=== PATIENT | male | born 1960 | race Caucasian/White ===

== ENCOUNTER 2017-09-07 06:28 | Emergency (ER) | payer OTHER ==
[2017-09-07] MEDS: KETOROLAC 30 MG INJ IM (06:55)
== END 2017-09-07 07:08 | disposition home or self-care (01) ==
LOC: FTE 06:28
DX: M94.261 Chondromalacia, right knee (principal)
CPT/HCPCS: 96372; 99284-25

== ENCOUNTER 2018-08-14 18:15 | Inpatient (IN) | payer OTHER ==
[2018-08-14] MEDS: SOD CHLORIDE 0.9% 500 ML IV (19:39)
[2018-08-14] MEDS: SOD CHLORIDE 0.9% 100 ML (19:49)
[2018-08-14] MEDS: IOHEXOL 100 ML (19:49)
[2018-08-14 19:54] LABS: ADD MAN DIFF? NO
[2018-08-14 19:58] LABS: WHITE BLOOD COUNT 8.9 10^3/ul (4.8-10.8)
[2018-08-14 19:58] LABS: ABNORMAL IP MESSAGE 1; BASOPHILS % 0.2 % (0.0-2.0); EOSINOPHILS % 0.2 % (0.0-7.0); HEMATOCRIT 34.9 % (42.0-52.0); LYMPHOCYTES # 0.6 10^3/ul (0.8-2.9); LYMPHOCYTES % 6.3 % (15.0-51.0); MEAN CORPUSCULAR HEMOGLOBIN 27.3 pg (29.0-33.0); MEAN CORPUSCULAR HGB CONC 31.5 g/dl (32.0-37.0); MEAN CORPUSCULAR VOLUME 86.6 fl (82.0-101.0); MEAN PLATELET VOLUME 8.9 fl (7.4-10.4); MONOCYTE # 0.7 10^3/ul (0.3-0.9); MONOCYTES % 8.4 % (0.0-11.0); NEUTROPHIL # 7.5 10^3/ul (1.6-7.5); NEUTROPHILS % 84.1 % (39.0-77.0); PLATELET COUNT 314 10^3/UL (140-415); POSITIVE DIFF @See below; RED BLOOD COUNT 4.03 10^6/ul (4.70-6.10); RED CELL DISTRIBUTION WIDTH 15.9 % (11.5-14.5)
[2018-08-14 20:02] LABS: ANION GAP 11 (5-13); BLOOD UREA NITROGEN 18 mg/dl (7-20); CALCIUM 8.8 mg/dl (8.4-10.2); CARBON DIOXIDE 25 mmol/L (21-31); CHLORIDE 99 mmol/L (97-110); CREATININE 0.66 mg/dl (0.61-1.24); Estimated GFR > 60 mL/min (>60); GLUCOSE 394 mg/dl (70-220); POTASSIUM 4.6 mmol/L (3.5-5.1); SODIUM 135 mmol/L (135-144)
[2018-08-14 20:04] LABS: INR 1.04; PARTIAL THROMBOPLASTIN TIME 29.5 Sec (23.0-35.0); PROTIME 13.7 Sec (11.9-14.9); PT RATIO 1.1
[2018-08-14 20:15] LABS: B-TYPE NATRIURETIC PEPTIDE 354 PG/ML (0-125); TROPONIN-I < 0.012 ng/ml (0.000-0.120)
[2018-08-14] MEDS: CEFTRIAXONE 1 GM/50 ML (PMX) 50 ML IVPB (22:11)
[2018-08-14] MEDS: PROPOFOL 200 MG INJ IV (22:33)
[2018-08-14] MEDS: ONDANSETRON 4 MG INJ IV (23:03)
[2018-08-14] MEDS: HYDROmorphONE 0.5 MG/0.5 ML SYG IV (23:04)
[2018-08-14] MEDS ORDERED: ONDANSETRON 4 MG INJ IV (23:30)
[2018-08-14] MEDS ORDERED: ZOLPIDEM 5 MG TAB PO (23:30)
[2018-08-15] MEDS ORDERED: ONDANSETRON 4 MG INJ IV
[2018-08-15] MEDS ORDERED: ACETAMINOPHEN 325 MG TAB PO
[2018-08-15] MEDS: morphine 4 MG/ML VIAL IV ×2 (03:55→18:53)
[2018-08-15] MEDS ORDERED: CLARITHROMYCIN 500 MG TAB PO ×2 (09:00→10:30)
[2018-08-15] MEDS ORDERED: RIFABUTIN 150 MG CAP PO (09:00)
[2018-08-15] MEDS ORDERED: GLUCAGON 1 MG INJ IM (09:00)
[2018-08-15] MEDS ORDERED: GLUCOSE GEL 15 GRAM TUBE PO ×2 (09:00)
[2018-08-15] MEDS ORDERED: DEXTROSE 50% 50 ML SYRINGE IV ×2 (09:00)
[2018-08-15] MEDS ORDERED: ETHAMBUTOL 400 MG TAB PO ×2 (09:00→10:30)
[2018-08-15] MEDS ORDERED: GLUCOSE GEL 15 GRAM TUBE BUCCAL (09:00)
[2018-08-15] MEDS: FOLIC ACID 1 MG TAB PO (09:56)
[2018-08-15] MEDS: predniSONE 2.5 MG TAB PO (09:57)
[2018-08-15] MEDS: INSULIN ASPART [NOVOLOG] 3 ML PEN SC ×3 (12:23→21:48)
[2018-08-16] MEDS: ACETAMINOPHEN 325 MG TAB PO (04:44)
[2018-08-16] MEDS: INSULIN ASPART [NOVOLOG] 3 ML PEN SC ×4 (07:41→22:11)
[2018-08-16] MEDS: predniSONE 2.5 MG TAB PO (08:04)
[2018-08-16] MEDS: FOLIC ACID 1 MG TAB PO (08:04)
[2018-08-16] MEDS: morphine 4 MG/ML VIAL IV (11:02)
[2018-08-16] MEDS ORDERED: VANCOMYCIN IV PER PHARMACY XX (12:00)
[2018-08-16 12:05] LABS: LACTIC ACID 1.8 mmol/L (0.5-2.0)
[2018-08-16 12:46] LABS: PROCALCITONIN 0.45 ng/mL (0.00-0.10)
[2018-08-16 13:02] LABS: ADD UMIC YES; UR ASCORBIC ACID NEGATIVE (NEGATIVE); UR BACTERIA FEW /HPF (NONE SEEN); UR BILIRUBIN (Dip) NEGATIVE (NEGATIVE); UR BLOOD (Dip) 1+ mg/dL (NEGATIVE); UR CLARITY CLEAR (CLEAR); UR COLOR AMBER (YELLOW); UR GLUCOSE (Dip) 3+ mg/dL (NEGATIVE); UR KETONES (Dip) 1+ mg/dL (NEGATIVE); UR LEUKOCYTE ESTERASE (Dip) NEGATIVE Leu/ul (NEGATIVE); UR MUCUS MODERATE /HPF (NONE SEEN); UR NITRITE (Dip) NEGATIVE (NEGATIVE); UR RBC 72 /HPF (0-5); UR SPECIFIC GRAVITY (Dip) 1.027 (1.003-1.030); UR SQUAMOUS EPITHELIAL CELL FEW /HPF (FEW); UR TOTAL PROTEIN (Dip) 1+ mg/dl (NEGATIVE); UR UROBILINOGEN (Dip) 2+ mg/dL (NEGATIVE); UR WBC 5 /HPF (0-5)
[2018-08-16] MEDS: VANCOMYCIN HCL 1.5 GM in SOD CHLORIDE 0.9% 250 ML IVPB (13:11)
[2018-08-16] MEDS: PIPER-TAZO 3.375 GM IV (PMX) 100 ML IVPB (17:30)
[2018-08-16 19:53] LABS: HIV 1&2 ANTIBODY NEGATIVE (NEGATIVE)
[2018-08-17] MEDS: PIPER-TAZO 3.375 GM IV (PMX) 100 ML IVPB ×3 (01:53→18:58)
[2018-08-17] MEDS: VANCOMYCIN 1 GM 250 ML IVPB ×2 (01:56→14:08)
[2018-08-17] MEDS: morphine 4 MG/ML VIAL IV ×2 (02:36→20:16)
[2018-08-17] MEDS: ACETAMINOPHEN 325 MG TAB PO (04:48)
[2018-08-17 07:48] LABS: ADD MAN DIFF? NO
[2018-08-17 07:55] LABS: BASOPHILS % 0.2 % (0.0-2.0); EOSINOPHILS % 0.3 % (0.0-7.0); HEMATOCRIT 37.2 % (42.0-52.0); HEMOGLOBIN 11.4 g/dl (14.0-18.0); LYMPHOCYTES % 6.7 % (15.0-51.0); MEAN CORPUSCULAR HEMOGLOBIN 26.6 pg (29.0-33.0); MEAN CORPUSCULAR HGB CONC 30.6 g/dl (32.0-37.0); MEAN CORPUSCULAR VOLUME 86.9 fl (82.0-101.0); MEAN PLATELET VOLUME 8.4 fl (7.4-10.4); MONOCYTE # 1.3 10^3/ul (0.3-0.9); MONOCYTES % 8.4 % (0.0-11.0); NEUTROPHILS % 83.1 % (39.0-77.0); PLATELET COUNT 262 10^3/UL (140-415); RED BLOOD COUNT 4.28 10^6/ul (4.70-6.10); RED CELL DISTRIBUTION WIDTH 16.5 % (11.5-14.5)
[2018-08-17 07:55] LABS: WHITE BLOOD COUNT 15.6 10^3/ul (4.8-10.8)
[2018-08-17] MEDS: ETHAMBUTOL 400 MG TAB PO ×2 (09:11→20:15)
[2018-08-17] MEDS: CLARITHROMYCIN 500 MG TAB PO ×2 (09:11→20:15)
[2018-08-17] MEDS: FOLIC ACID 1 MG TAB PO (09:11)
[2018-08-17] MEDS: predniSONE 2.5 MG TAB PO (09:11)
[2018-08-17] MEDS: RIFABUTIN 150 MG CAP PO ×2 (09:15→20:15)
[2018-08-17] MEDS: INSULIN ASPART [NOVOLOG] 3 ML PEN SC ×4 (09:31→20:15)
[2018-08-17] MEDS: PANTOPRAZOLE (EC) 40 MG TAB PO (14:08)
[2018-08-18 01:32] LABS: VANCOMYCIN,TROUGH 7.7 ug/ml (10.0-20.0)
[2018-08-18] MEDS: VANCOMYCIN 1 GM 250 ML IVPB (01:42)
[2018-08-18] MEDS: PIPER-TAZO 3.375 GM IV (PMX) 100 ML IVPB ×2 (01:43→09:55)
[2018-08-18] MEDS: ACETAMINOPHEN 325 MG TAB PO ×2 (02:00→08:06)
[2018-08-18] MEDS: PANTOPRAZOLE (EC) 40 MG TAB PO (05:42)
[2018-08-18] MEDS ORDERED: PANTOPRAZOLE (EC) 40 MG TAB PO (06:00)
[2018-08-18 07:16] LABS: CREATININE 0.94 mg/dl (0.61-1.24)
[2018-08-18 07:16] LABS: BLOOD UREA NITROGEN 13 mg/dl (7-20)
[2018-08-18] MEDS: INSULIN ASPART [NOVOLOG] 3 ML PEN SC ×4 (07:55→20:38)
[2018-08-18] MEDS: FOLIC ACID 1 MG TAB PO (08:06)
[2018-08-18] MEDS: predniSONE 2.5 MG TAB PO (08:06)
[2018-08-18 08:35] LABS: ADD MAN DIFF? NO
[2018-08-18 08:44] LABS: WHITE BLOOD COUNT 13.1 10^3/ul (4.8-10.8)
[2018-08-18 08:44] LABS: BASOPHILS % 0.2 % (0.0-2.0); EOSINOPHILS # 0.1 10^3/ul (0.0-0.5); EOSINOPHILS % 0.4 % (0.0-7.0); HEMATOCRIT 36.3 % (42.0-52.0); HEMOGLOBIN 11.3 g/dl (14.0-18.0); LYMPHOCYTES # 0.8 10^3/ul (0.8-2.9); LYMPHOCYTES % 5.9 % (15.0-51.0); MEAN CORPUSCULAR HEMOGLOBIN 26.8 pg (29.0-33.0); MEAN CORPUSCULAR HGB CONC 31.1 g/dl (32.0-37.0); MEAN PLATELET VOLUME 8.4 fl (7.4-10.4); MONOCYTE # 1.1 10^3/ul (0.3-0.9); MONOCYTES % 8.7 % (0.0-11.0); NEUTROPHIL # 10.9 10^3/ul (1.6-7.5); NEUTROPHILS % 83.4 % (39.0-77.0); PLATELET COUNT 278 10^3/UL (140-415); RED BLOOD COUNT 4.22 10^6/ul (4.70-6.10); RED CELL DISTRIBUTION WIDTH 16.5 % (11.5-14.5)
[2018-08-18] MEDS: morphine 2 MG INJ IV (08:54)
[2018-08-18] MEDS ORDERED: SOD CHLORIDE 0.9% 250 ML IV (09:00)
[2018-08-18 09:02] LABS: LACTIC ACID 1.2 mmol/L (0.5-2.0)
[2018-08-18 09:05] LABS: ALANINE AMINOTRANSFERASE 40 IU/L (13-69); ALBUMIN 2.6 g/dl (3.3-4.9); ALBUMIN/GLOBULIN RATIO 0.86; ALKALINE PHOSPHATASE 166 IU/L (42-121); ANION GAP 10 (5-13); ASPARTATE AMINO TRANSFERASE 25 IU/L (15-46); BILIRUBIN,INDIRECT 0.4 mg/dl (0-1.1); BILIRUBIN,TOTAL 0.4 mg/dl (0.2-1.3); BLOOD UREA NITROGEN 14 mg/dl (7-20); CALCIUM 8.7 mg/dl (8.4-10.2); CARBON DIOXIDE 24 mmol/L (21-31); CHLORIDE 100 mmol/L (97-110); CREATININE 0.98 mg/dl (0.61-1.24); Estimated GFR > 60 mL/min (>60); GLUCOSE 112 mg/dl (70-220); POTASSIUM 4.4 mmol/L (3.5-5.1); SODIUM 134 mmol/L (135-144); TOTAL PROTEIN 5.6 g/dl (6.1-8.1)
[2018-08-18] MEDS: SOD CHLORIDE 0.9% 500 ML IV (09:55)
[2018-08-18] MEDS: VANCOMYCIN HCL 1.5 GM in SOD CHLORIDE 0.9% 250 ML IVPB (12:07)
[2018-08-18] MEDS: MEROPENEM 1 GM/50ML(PMX) 50 ML IVPB ×2 (13:23→21:33)
[2018-08-18 13:50] LABS: ADD UMIC YES; UR ASCORBIC ACID NEGATIVE (NEGATIVE); UR BILIRUBIN (Dip) NEGATIVE (NEGATIVE); UR BLOOD (Dip) NEGATIVE (NEGATIVE); UR CLARITY CLEAR (CLEAR); UR COLOR YELLOW (YELLOW); UR GLUCOSE (Dip) NEGATIVE (NEGATIVE); UR KETONES (Dip) 1+ mg/dL (NEGATIVE); UR LEUKOCYTE ESTERASE (Dip) NEGATIVE Leu/ul (NEGATIVE); UR NITRITE (Dip) NEGATIVE (NEGATIVE); UR RBC 2 /HPF (0-5); UR SPECIFIC GRAVITY (Dip) 1.011 (1.003-1.030); UR TOTAL PROTEIN (Dip) 1+ mg/dl (NEGATIVE); UR UROBILINOGEN (Dip) NEGATIVE (NEGATIVE); UR WBC 2 /HPF (0-5)
[2018-08-18] MEDS: ASPIRIN 81 MG TAB PO (17:07)
[2018-08-19] MEDS: VANCOMYCIN HCL 1.5 GM in SOD CHLORIDE 0.9% 250 ML IVPB ×2 (00:29→11:35)
[2018-08-19] MEDS: MEROPENEM 1 GM/50ML(PMX) 50 ML IVPB ×3 (05:28→22:31)
[2018-08-19] MEDS: PANTOPRAZOLE (EC) 40 MG TAB PO (05:28)
[2018-08-19] MEDS: INSULIN ASPART [NOVOLOG] 3 ML PEN SC ×4 (07:55→20:25)
[2018-08-19] MEDS: FOLIC ACID 1 MG TAB PO (08:16)
[2018-08-19] MEDS: ASPIRIN 81 MG TAB PO (08:16)
[2018-08-19] MEDS: predniSONE 2.5 MG TAB PO (08:16)
[2018-08-19] MEDS: ACETAMINOPHEN 325 MG TAB PO (08:16)
[2018-08-19] MEDS: ETHAMBUTOL 400 MG TAB PO ×2 (08:20→20:25)
[2018-08-19] MEDS: RIFABUTIN 150 MG CAP PO ×2 (08:20→20:25)
[2018-08-19] MEDS: CLARITHROMYCIN 500 MG TAB PO ×2 (08:20→20:25)
[2018-08-19 10:08] LABS: ADD MAN DIFF? NO
[2018-08-19 10:10] LABS: BASOPHILS % 0.3 % (0.0-2.0); EOSINOPHILS # 0.1 10^3/ul (0.0-0.5); EOSINOPHILS % 0.8 % (0.0-7.0); HEMATOCRIT 34.5 % (42.0-52.0); HEMOGLOBIN 10.9 g/dl (14.0-18.0); LYMPHOCYTES # 0.7 10^3/ul (0.8-2.9); LYMPHOCYTES % 5.5 % (15.0-51.0); MEAN CORPUSCULAR HEMOGLOBIN 27.7 pg (29.0-33.0); MEAN CORPUSCULAR HGB CONC 31.6 g/dl (32.0-37.0); MEAN CORPUSCULAR VOLUME 87.6 fl (82.0-101.0); MEAN PLATELET VOLUME 8.5 fl (7.4-10.4); MONOCYTE # 1.2 10^3/ul (0.3-0.9); MONOCYTES % 9.3 % (0.0-11.0); NEUTROPHIL # 10.8 10^3/ul (1.6-7.5); PLATELET COUNT 326 10^3/UL (140-415); RED BLOOD COUNT 3.94 10^6/ul (4.70-6.10); RED CELL DISTRIBUTION WIDTH 16.5 % (11.5-14.5)
[2018-08-19 10:10] LABS: WHITE BLOOD COUNT 13.1 10^3/ul (4.8-10.8)
[2018-08-19 10:29] LABS: ALANINE AMINOTRANSFERASE 24 IU/L (13-69); ALBUMIN 3.2 g/dl (3.3-4.9); ALBUMIN/GLOBULIN RATIO 0.82; ALKALINE PHOSPHATASE 169 IU/L (42-121); ANION GAP 15 (5-13); ASPARTATE AMINO TRANSFERASE 21 IU/L (15-46); BILIRUBIN,INDIRECT 0.3 mg/dl (0-1.1); BILIRUBIN,TOTAL 0.3 mg/dl (0.2-1.3); BLOOD UREA NITROGEN 20 mg/dl (7-20); CALCIUM 9.1 mg/dl (8.4-10.2); CARBON DIOXIDE 22 mmol/L (21-31); CHLORIDE 103 mmol/L (97-110); CREATININE 1.34 mg/dl (0.61-1.24); Estimated GFR 55 mL/min (>60); GLUCOSE 144 mg/dl (70-220); MAGNESIUM 2.2 mg/dl (1.7-2.5); PHOSPHORUS 2.8 mg/dl (2.5-4.9); POTASSIUM 4.1 mmol/L (3.5-5.1); SODIUM 140 mmol/L (135-144); TOTAL PROTEIN 7.1 g/dl (6.1-8.1)
[2018-08-19 10:31] LABS: INR 1.18; PROTIME 15.1 Sec (11.9-14.9); PT RATIO 1.2
[2018-08-19 10:32] LABS: PARTIAL THROMBOPLASTIN TIME 39.3 Sec (23.0-35.0)
[2018-08-19 11:57] LABS: LACTIC ACID 1.3 mmol/L (0.5-2.0)
[2018-08-19] MEDS ORDERED: DIPHENHYDRAMINE 50 MG INJ IM (12:00)
[2018-08-19] MEDS: FENTAnyl 50 MCG/ML VIAL (13:48)
[2018-08-19] MEDS: LIDOCAINE 1% (MDV) 20 ML INJ (13:48)
[2018-08-19] MEDS: BENZONATATE 100 MG CAP PO (15:00)
[2018-08-19] MEDS: FLUCONAZOLE 400 MG/NS (PMX) 200 ML IVPB (15:02)
[2018-08-19] MEDS: DIPHENHYDRAMINE 50 MG INJ IV (16:14)
[2018-08-19] MEDS: morphine 2 MG INJ IV (16:40)
[2018-08-19] MEDS: SOD CHLORIDE 0.9% 1,000 ML IV (22:31)
[2018-08-19 23:59] LABS: VANCOMYCIN,TROUGH 21.4 ug/ml (10.0-20.0)
[2018-08-20] MEDS: ACETAMINOPHEN 325 MG TAB PO ×2 (04:10→10:27)
[2018-08-20] MEDS: VANCOMYCIN 1 GM 250 ML IVPB ×2 (04:10→15:52)
[2018-08-20] MEDS: MEROPENEM 1 GM/50ML(PMX) 50 ML IVPB ×3 (05:41→21:01)
[2018-08-20] MEDS: PANTOPRAZOLE (EC) 40 MG TAB PO (05:41)
[2018-08-20 07:03] LABS: ADD MAN DIFF? NO
[2018-08-20 07:11] LABS: ABNORMAL IP MESSAGE 1; BASOPHILS % 0.3 % (0.0-2.0); EOSINOPHILS # 0.1 10^3/ul (0.0-0.5); EOSINOPHILS % 1.2 % (0.0-7.0); HEMATOCRIT 31.5 % (42.0-52.0); HEMOGLOBIN 9.8 g/dl (14.0-18.0); LYMPHOCYTES # 0.6 10^3/ul (0.8-2.9); LYMPHOCYTES % 6.4 % (15.0-51.0); MEAN CORPUSCULAR HEMOGLOBIN 26.8 pg (29.0-33.0); MEAN CORPUSCULAR HGB CONC 31.1 g/dl (32.0-37.0); MEAN CORPUSCULAR VOLUME 86.3 fl (82.0-101.0); MEAN PLATELET VOLUME 8.8 fl (7.4-10.4); MONOCYTE # 0.9 10^3/ul (0.3-0.9); MONOCYTES % 9.8 % (0.0-11.0); NEUTROPHIL # 7.3 10^3/ul (1.6-7.5); NEUTROPHILS % 81.4 % (39.0-77.0); PLATELET COUNT 304 10^3/UL (140-415); POSITIVE DIFF @See below; RED BLOOD COUNT 3.65 10^6/ul (4.70-6.10); RED CELL DISTRIBUTION WIDTH 16.7 % (11.5-14.5)
[2018-08-20 07:33] LABS: ALANINE AMINOTRANSFERASE 24 IU/L (13-69); ALBUMIN 2.7 g/dl (3.3-4.9); ALBUMIN/GLOBULIN RATIO 0.81; ALKALINE PHOSPHATASE 122 IU/L (42-121); ANION GAP 7 (5-13); ASPARTATE AMINO TRANSFERASE 19 IU/L (15-46); BILIRUBIN,INDIRECT 0.2 mg/dl (0-1.1); BILIRUBIN,TOTAL 0.2 mg/dl (0.2-1.3); BLOOD UREA NITROGEN 17 mg/dl (7-20); CALCIUM 8.7 mg/dl (8.4-10.2); CARBON DIOXIDE 25 mmol/L (21-31); CHLORIDE 105 mmol/L (97-110); CREATININE 1.18 mg/dl (0.61-1.24); Estimated GFR > 60 mL/min (>60); GLUCOSE 108 mg/dl (70-220); PHOSPHORUS 2.5 mg/dl (2.5-4.9); POTASSIUM 3.7 mmol/L (3.5-5.1); SODIUM 137 mmol/L (135-144)
[2018-08-20] MEDS: INSULIN ASPART [NOVOLOG] 3 ML PEN SC ×4 (07:55→20:56)
[2018-08-20] MEDS: FOLIC ACID 1 MG TAB PO (08:42)
[2018-08-20] MEDS: predniSONE 2.5 MG TAB PO (08:42)
[2018-08-20] MEDS: SOD CHLORIDE 0.9% 1,000 ML IV ×2 (08:42→13:29)
[2018-08-20] MEDS: ASPIRIN 81 MG TAB PO (08:42)
[2018-08-20 13:01] LABS: NIL 0.04 IU/mL; QUANTIFERON(R)-TB GOLD NEGATIVE (NEGATIVE); TB-NIL 0.01 IU/mL; TB2-NIL 0.02 IU/mL
[2018-08-20] MEDS: FLUCONAZOLE 400 MG/NS (PMX) 200 ML IVPB (13:23)
[2018-08-20 23:12] LABS: CRYPTOCOCCAL ANTIGEN - SOURCE SERUM
[2018-08-21] MEDS: SOD CHLORIDE 0.9% 1,000 ML IV ×4 (00:16→18:26)
[2018-08-21] MEDS: VANCOMYCIN 1 GM 250 ML IVPB ×2 (03:48→16:05)
[2018-08-21] MEDS: PANTOPRAZOLE (EC) 40 MG TAB PO (05:45)
[2018-08-21] MEDS: ACETAMINOPHEN 325 MG TAB PO ×2 (05:45→10:57)
[2018-08-21] MEDS: MEROPENEM 1 GM/50ML(PMX) 50 ML IVPB ×3 (05:46→21:14)
[2018-08-21 07:51] LABS: ADD MAN DIFF? NO
[2018-08-21] MEDS: INSULIN ASPART [NOVOLOG] 3 ML PEN SC ×4 (07:55→21:00)
[2018-08-21 07:58] LABS: WHITE BLOOD COUNT 10.2 10^3/ul (4.8-10.8)
[2018-08-21 07:58] LABS: BASOPHILS % 0.3 % (0.0-2.0); EOSINOPHILS # 0.2 10^3/ul (0.0-0.5); EOSINOPHILS % 1.9 % (0.0-7.0); HEMATOCRIT 31.4 % (42.0-52.0); HEMOGLOBIN 9.7 g/dl (14.0-18.0); LYMPHOCYTES # 0.7 10^3/ul (0.8-2.9); LYMPHOCYTES % 6.5 % (15.0-51.0); MEAN CORPUSCULAR HEMOGLOBIN 26.6 pg (29.0-33.0); MEAN CORPUSCULAR HGB CONC 30.9 g/dl (32.0-37.0); MEAN CORPUSCULAR VOLUME 86.3 fl (82.0-101.0); MEAN PLATELET VOLUME 8.9 fl (7.4-10.4); MONOCYTE # 0.9 10^3/ul (0.3-0.9); MONOCYTES % 8.3 % (0.0-11.0); NEUTROPHIL # 8.4 10^3/ul (1.6-7.5); NEUTROPHILS % 82.1 % (39.0-77.0); PLATELET COUNT 329 10^3/UL (140-415); RED BLOOD COUNT 3.64 10^6/ul (4.70-6.10); RED CELL DISTRIBUTION WIDTH 16.8 % (11.5-14.5)
[2018-08-21] MEDS: FOLIC ACID 1 MG TAB PO (08:17)
[2018-08-21] MEDS: ASPIRIN 81 MG TAB PO (08:18)
[2018-08-21] MEDS: predniSONE 2.5 MG TAB PO (08:18)
[2018-08-21] MEDS: RIFABUTIN 150 MG CAP PO ×2 (08:23→21:15)
[2018-08-21] MEDS: ETHAMBUTOL 400 MG TAB PO ×2 (08:23→21:15)
[2018-08-21] MEDS: CLARITHROMYCIN 500 MG TAB PO ×2 (08:28→21:15)
[2018-08-21 08:32] LABS: ALANINE AMINOTRANSFERASE 22 IU/L (13-69); ALBUMIN 2.8 g/dl (3.3-4.9); ALBUMIN/GLOBULIN RATIO 0.93; ALKALINE PHOSPHATASE 115 IU/L (42-121); ANION GAP 8 (5-13); ASPARTATE AMINO TRANSFERASE 22 IU/L (15-46); BILIRUBIN,INDIRECT 0.2 mg/dl (0-1.1); BILIRUBIN,TOTAL 0.2 mg/dl (0.2-1.3); BLOOD UREA NITROGEN 13 mg/dl (7-20); CALCIUM 8.7 mg/dl (8.4-10.2); CARBON DIOXIDE 25 mmol/L (21-31); CHLORIDE 103 mmol/L (97-110); CREATININE 1.11 mg/dl (0.61-1.24); Estimated GFR > 60 mL/min (>60); GLUCOSE 107 mg/dl (70-220); MAGNESIUM 1.9 mg/dl (1.7-2.5); PHOSPHORUS 2.5 mg/dl (2.5-4.9); POTASSIUM 3.7 mmol/L (3.5-5.1); SODIUM 136 mmol/L (135-144); TOTAL PROTEIN 5.8 g/dl (6.1-8.1)
[2018-08-21] MEDS: FLUCONAZOLE 400 MG/NS (PMX) 200 ML IVPB (12:32)
[2018-08-21 23:36] LABS: IMMEDIATE SPIN CROSSMATCH 1 1
[2018-08-22] MEDS: SOD CHLORIDE 0.9% 1,000 ML IV ×3 (00:40→15:41)
[2018-08-22] MEDS: ACETAMINOPHEN 325 MG TAB PO ×2 (03:06→08:29)
[2018-08-22 03:46] LABS: ADD MAN DIFF? NO
[2018-08-22 04:04] LABS: BASOPHILS % 0.4 % (0.0-2.0); EOSINOPHILS # 0.2 10^3/ul (0.0-0.5); HEMATOCRIT 33.9 % (42.0-52.0); HEMOGLOBIN 10.6 g/dl (14.0-18.0); LYMPHOCYTES # 1.5 10^3/ul (0.8-2.9); LYMPHOCYTES % 12.8 % (15.0-51.0); MEAN CORPUSCULAR HEMOGLOBIN 27.2 pg (29.0-33.0); MEAN CORPUSCULAR HGB CONC 31.3 g/dl (32.0-37.0); MEAN CORPUSCULAR VOLUME 87.1 fl (82.0-101.0); MEAN PLATELET VOLUME 8.7 fl (7.4-10.4); MONOCYTE # 0.9 10^3/ul (0.3-0.9); MONOCYTES % 7.4 % (0.0-11.0); NEUTROPHIL # 8.7 10^3/ul (1.6-7.5); NEUTROPHILS % 76.3 % (39.0-77.0); PLATELET COUNT 365 10^3/UL (140-415); RED BLOOD COUNT 3.89 10^6/ul (4.70-6.10); RED CELL DISTRIBUTION WIDTH 16.4 % (11.5-14.5)
[2018-08-22 04:04] LABS: WHITE BLOOD COUNT 11.4 10^3/ul (4.8-10.8)
[2018-08-22 04:10] LABS: VANCOMYCIN,TROUGH 19.2 ug/ml (10.0-20.0)
[2018-08-22 04:10] LABS: ALANINE AMINOTRANSFERASE 20 IU/L (13-69); ALBUMIN/GLOBULIN RATIO 0.85; ALKALINE PHOSPHATASE 125 IU/L (42-121); ANION GAP 9 (5-13); ASPARTATE AMINO TRANSFERASE 21 IU/L (15-46); BILIRUBIN,INDIRECT 0.4 mg/dl (0-1.1); BILIRUBIN,TOTAL 0.4 mg/dl (0.2-1.3); BLOOD UREA NITROGEN 11 mg/dl (7-20); CALCIUM 9.2 mg/dl (8.4-10.2); CARBON DIOXIDE 27 mmol/L (21-31); CHLORIDE 104 mmol/L (97-110); CREATININE 1.09 mg/dl (0.61-1.24); Estimated GFR > 60 mL/min (>60); GLUCOSE 85 mg/dl (70-220); MAGNESIUM 2.1 mg/dl (1.7-2.5); PHOSPHORUS 2.8 mg/dl (2.5-4.9); POTASSIUM 4.1 mmol/L (3.5-5.1); SODIUM 140 mmol/L (135-144); TOTAL PROTEIN 6.5 g/dl (6.1-8.1)
[2018-08-22 05:13] LABS: PROCALCITONIN 0.83 ng/mL (0.00-0.10)
[2018-08-22] MEDS: PANTOPRAZOLE (EC) 40 MG TAB PO (05:54)
[2018-08-22] MEDS: MEROPENEM 1 GM/50ML(PMX) 50 ML IVPB ×3 (05:55→21:57)
[2018-08-22] MEDS: VANCOMYCIN 750 MG (PMX) 250 ML IVPB (06:41)
[2018-08-22] MEDS: INSULIN ASPART [NOVOLOG] 3 ML PEN SC ×4 (07:55→20:24)
[2018-08-22] MEDS: predniSONE 2.5 MG TAB PO (08:28)
[2018-08-22] MEDS: ASPIRIN 81 MG TAB PO (08:28)
[2018-08-22] MEDS: FOLIC ACID 1 MG TAB PO (08:28)
[2018-08-22] MEDS ORDERED: LIDOCAINE 2% (SDV) 5 ML INJ (11:21)
[2018-08-22] MEDS ORDERED: MIDAZOLAM 1 MG/ML 2 ML INJ ×2 (11:21→12:48)
[2018-08-22] MEDS ORDERED: PROPOFOL 20 ML (11:22)
[2018-08-22] MEDS ORDERED: DEXAMETHASONE 4 MG/ML 5 ML INJ (13:34)
[2018-08-22] MEDS ORDERED: ROCURONIUM 50 MG INJ (14:05)
[2018-08-22] MEDS ORDERED: ONDANSETRON 4 MG INJ (14:06)
[2018-08-22] MEDS: SURGIFOAM POWDER 1 GM KIT MM (14:15)
[2018-08-22] MEDS ORDERED: SUGAMMADEX SODIUM 200 MG/2 ML VIAL IV (14:18)
[2018-08-22] MEDS: THROMBIN 5000 UNIT VIAL (14:51)
[2018-08-22] MEDS ORDERED: DIPHENHYDRAMINE 50 MG INJ IV (15:00)
[2018-08-22] MEDS ORDERED: EPHEDrine 25 MG/5 ML SYG IV (15:00)
[2018-08-22] MEDS ORDERED: LABETALOL HCL 20MG INJ IV (15:00)
[2018-08-22] MEDS ORDERED: ALBUTEROL 0.083% (NEB) 2.5 MG/3 ML AMP HHN (15:00)
[2018-08-22] MEDS ORDERED: MEPERIDINE 25 MG INJ IV (15:00)
[2018-08-22] MEDS ORDERED: MIDAZOLAM 1 MG/ML 2 ML INJ IV (15:00)
[2018-08-22] MEDS ORDERED: HYDROmorphONE 0.5 MG/0.5 ML SYG IV ×2 (15:00)
[2018-08-22] MEDS: hydrALAzine 20 MG INJ IV (15:39)
[2018-08-22] MEDS: HYDROmorphONE 0.5 MG/0.5 ML SYG IV (15:59)
[2018-08-22] MEDS: FLUCONAZOLE 400 MG/NS (PMX) 200 ML IVPB (17:10)
[2018-08-22] MEDS: morphine 2 MG INJ IV (20:05)
[2018-08-22] MEDS ORDERED: VANCOMYCIN HCL 1.25 GM in SOD CHLORIDE 0.9% 250 ML IVPB (23:00)
[2018-08-23] MEDS: SOD CHLORIDE 0.9% 1,000 ML IV ×4 (03:40→17:31)
[2018-08-23 05:07] LABS: AADO2 Arterial 30.2 mmHg (7.0-24.0); Arterial Blood Gas Oxygen Sat 95.1 mmHG (95.0-98.0); Arterial COHb 0.3 % (0.0-3.0); Arterial Fraction of Oxyhgb 94.7 % (93.0-99.0); Arterial HCO3 22.8 mmol/L (22.0-26.0); Arterial MetHb 0.1 % (0.0-1.5); Arterial pCO2 34.9 mmhg (35-45); MODE ROOM AIR; Site A-Line
[2018-08-23 05:13] LABS: ADD MAN DIFF? NO
[2018-08-23 05:17] LABS: ABNORMAL IP MESSAGE 1; BASOPHILS % 0.2 % (0.0-2.0); HEMATOCRIT 31.9 % (42.0-52.0); LYMPHOCYTES # 0.6 10^3/ul (0.8-2.9); LYMPHOCYTES % 4.4 % (15.0-51.0); MEAN CORPUSCULAR HGB CONC 31.3 g/dl (32.0-37.0); MEAN PLATELET VOLUME 8.7 fl (7.4-10.4); MONOCYTE # 0.2 10^3/ul (0.3-0.9); MONOCYTES % 1.4 % (0.0-11.0); NEUTROPHIL # 12.4 10^3/ul (1.6-7.5); NEUTROPHILS % 93.2 % (39.0-77.0); PLATELET COUNT 414 10^3/UL (140-415); POSITIVE DIFF @See below; RED BLOOD COUNT 3.71 10^6/ul (4.70-6.10); RED CELL DISTRIBUTION WIDTH 16.4 % (11.5-14.5)
[2018-08-23 05:17] LABS: WHITE BLOOD COUNT 13.3 10^3/ul (4.8-10.8)
[2018-08-23 05:44] LABS: ANION GAP 9 (5-13); BLOOD UREA NITROGEN 17 mg/dl (7-20); CARBON DIOXIDE 25 mmol/L (21-31); CHLORIDE 102 mmol/L (97-110); CREATININE 0.97 mg/dl (0.61-1.24); Estimated GFR > 60 mL/min (>60); GLUCOSE 166 mg/dl (70-220); POTASSIUM 4.6 mmol/L (3.5-5.1); SODIUM 136 mmol/L (135-144)
[2018-08-23] MEDS: PANTOPRAZOLE (EC) 40 MG TAB PO (05:46)
[2018-08-23] MEDS: MEROPENEM 1 GM/50ML(PMX) 50 ML IVPB ×3 (05:46→21:09)
[2018-08-23] MEDS: morphine 2 MG INJ IV (05:52)
[2018-08-23] MEDS: INSULIN ASPART [NOVOLOG] 3 ML PEN SC ×4 (08:52→21:21)
[2018-08-23] MEDS: FOLIC ACID 1 MG TAB PO (08:55)
[2018-08-23] MEDS: predniSONE 2.5 MG TAB PO (08:55)
[2018-08-23] MEDS: ASPIRIN 81 MG TAB PO (08:55)
[2018-08-23] MEDS: ENOXAPARIN 40 MG/0.4 ML SYG SC (09:05)
[2018-08-23] MEDS: FLUCONAZOLE 400 MG/NS (PMX) 200 ML IVPB (13:31)
[2018-08-24] MEDS: SOD CHLORIDE 0.9% 1,000 ML IV ×4 (01:00→20:23)
[2018-08-24] MEDS: morphine 2 MG INJ IV ×2 (02:02→09:36)
[2018-08-24] MEDS: PANTOPRAZOLE (EC) 40 MG TAB PO (05:31)
[2018-08-24] MEDS: MEROPENEM 1 GM/50ML(PMX) 50 ML IVPB ×2 (05:32→15:21)
[2018-08-24 05:53] LABS: ADD MAN DIFF? NO
[2018-08-24 06:17] LABS: BASOPHIL # 0.1 10^3/ul (0.0-0.1); BASOPHILS % 0.3 % (0.0-2.0); EOSINOPHILS # 0.4 10^3/ul (0.0-0.5); EOSINOPHILS % 2.3 % (0.0-7.0); HEMOGLOBIN 10.1 g/dl (14.0-18.0); LYMPHOCYTES % 5.8 % (15.0-51.0); MEAN CORPUSCULAR HEMOGLOBIN 27.4 pg (29.0-33.0); MEAN CORPUSCULAR HGB CONC 31.6 g/dl (32.0-37.0); MEAN CORPUSCULAR VOLUME 86.7 fl (82.0-101.0); MEAN PLATELET VOLUME 8.8 fl (7.4-10.4); MONOCYTE # 0.8 10^3/ul (0.3-0.9); MONOCYTES % 5.1 % (0.0-11.0); NEUTROPHIL # 14.1 10^3/ul (1.6-7.5); NEUTROPHILS % 85.6 % (39.0-77.0); PLATELET COUNT 479 10^3/UL (140-415); RED BLOOD COUNT 3.69 10^6/ul (4.70-6.10); RED CELL DISTRIBUTION WIDTH 16.3 % (11.5-14.5)
[2018-08-24 06:17] LABS: WHITE BLOOD COUNT 16.4 10^3/ul (4.8-10.8)
[2018-08-24 06:26] LABS: ANION GAP 4 (5-13); BLOOD UREA NITROGEN 19 mg/dl (7-20); CALCIUM 8.6 mg/dl (8.4-10.2); CARBON DIOXIDE 27 mmol/L (21-31); CHLORIDE 107 mmol/L (97-110); CREATININE 0.88 mg/dl (0.61-1.24); Estimated GFR > 60 mL/min (>60); GLUCOSE 168 mg/dl (70-220); POTASSIUM 4.1 mmol/L (3.5-5.1); SODIUM 138 mmol/L (135-144)
[2018-08-24] MEDS: INSULIN ASPART [NOVOLOG] 3 ML PEN SC ×4 (07:35→20:23)
[2018-08-24] MEDS: ASPIRIN 81 MG TAB PO (09:17)
[2018-08-24] MEDS: FOLIC ACID 1 MG TAB PO (09:20)
[2018-08-24] MEDS: predniSONE 2.5 MG TAB PO (09:20)
[2018-08-24] MEDS: ENOXAPARIN 40 MG/0.4 ML SYG SC (09:30)
[2018-08-24] MEDS: ETHAMBUTOL 400 MG TAB PO ×2 (11:16→20:24)
[2018-08-24] MEDS: CLARITHROMYCIN 500 MG TAB PO ×2 (11:16→20:24)
[2018-08-24] MEDS: RIFABUTIN 150 MG CAP PO ×2 (11:17→20:24)
[2018-08-24] MEDS: FLUCONAZOLE 400 MG/NS (PMX) 200 ML IVPB (12:51)
[2018-08-25] MEDS: SOD CHLORIDE 0.9% 1,000 ML IV ×2 (04:12→07:36)
[2018-08-25] MEDS: morphine 2 MG INJ IV (04:12)
[2018-08-25] MEDS: ACETAMINOPHEN 325 MG TAB PO (04:55)
[2018-08-25] MEDS: PANTOPRAZOLE (EC) 40 MG TAB PO (04:55)
[2018-08-25] MEDS: INSULIN ASPART [NOVOLOG] 3 ML PEN SC ×4 (07:36→20:14)
[2018-08-25] MEDS: FOLIC ACID 1 MG TAB PO (08:30)
[2018-08-25] MEDS: predniSONE 2.5 MG TAB PO (08:30)
[2018-08-25] MEDS: ASPIRIN 81 MG TAB PO (08:30)
[2018-08-25] MEDS: ENOXAPARIN 40 MG/0.4 ML SYG SC (08:35)
[2018-08-25] MEDS: FLUCONAZOLE 400 MG/NS (PMX) 200 ML IVPB (13:19)
[2018-08-25] MEDS: AL HYDROX/MG HYDROX/SIMETH 30 ML CUP PO (21:13)
[2018-08-26] MEDS: ACETAMINOPHEN 325 MG TAB PO (04:04)
[2018-08-26] MEDS: PANTOPRAZOLE (EC) 40 MG TAB PO (04:04)
[2018-08-26] MEDS: INSULIN ASPART [NOVOLOG] 3 ML PEN SC ×4 (08:50→20:26)
[2018-08-26] MEDS: FOLIC ACID 1 MG TAB PO (09:00)
[2018-08-26] MEDS: predniSONE 2.5 MG TAB PO (10:39)
[2018-08-26] MEDS: ASPIRIN 81 MG TAB PO (10:39)
[2018-08-26] MEDS: ENOXAPARIN 40 MG/0.4 ML SYG SC (10:43)
[2018-08-26] MEDS ORDERED: AMIKACIN IV PER PHARMACY XX (12:00)
[2018-08-26] MEDS: ETHAMBUTOL 400 MG TAB PO (13:30)
[2018-08-26] MEDS: AMIKACIN 1,000 MG in SOD CHLORIDE 0.9% 100 ML IVPB (14:50)
[2018-08-26 15:15] LABS: ADD UMIC YES; UR ASCORBIC ACID NEGATIVE (NEGATIVE); UR BILIRUBIN (Dip) NEGATIVE (NEGATIVE); UR BLOOD (Dip) 1+ mg/dL (NEGATIVE); UR CLARITY CLEAR (CLEAR); UR COLOR YELLOW (YELLOW); UR GLUCOSE (Dip) NEGATIVE (NEGATIVE); UR KETONES (Dip) 1+ mg/dL (NEGATIVE); UR LEUKOCYTE ESTERASE (Dip) NEGATIVE Leu/ul (NEGATIVE); UR NITRITE (Dip) NEGATIVE (NEGATIVE); UR RBC 0 /HPF (0-5); UR SPECIFIC GRAVITY (Dip) 1.012 (1.003-1.030); UR TOTAL PROTEIN (Dip) NEGATIVE (NEGATIVE); UR UROBILINOGEN (Dip) NEGATIVE (NEGATIVE); UR WBC 1 /HPF (0-5)
[2018-08-26] MEDS: CLARITHROMYCIN 500 MG TAB PO (20:25)
[2018-08-27] MEDS: PANTOPRAZOLE (EC) 40 MG TAB PO (05:52)
[2018-08-27] MEDS: INSULIN ASPART [NOVOLOG] 3 ML PEN SC ×4 (07:55→20:24)
[2018-08-27] MEDS: ASPIRIN 81 MG TAB PO (08:22)
[2018-08-27] MEDS: ACETAMINOPHEN 325 MG TAB PO (08:22)
[2018-08-27] MEDS: predniSONE 2.5 MG TAB PO (08:22)
[2018-08-27] MEDS: FOLIC ACID 1 MG TAB PO (08:22)
[2018-08-27] MEDS: ENOXAPARIN 40 MG/0.4 ML SYG SC (08:26)
[2018-08-27] MEDS ORDERED: AMIKACIN 1,000 MG in SOD CHLORIDE 0.9% 250 ML IVPB (13:13)
[2018-08-27] MEDS: AMIKACIN 1,000 MG in SOD CHLORIDE 0.9% 250 ML IVPB (16:51)
[2018-08-28] MEDS: PANTOPRAZOLE (EC) 40 MG TAB PO (06:18)
[2018-08-28] MEDS: INSULIN ASPART [NOVOLOG] 3 ML PEN SC ×4 (07:55→22:14)
[2018-08-28] MEDS: CLARITHROMYCIN 500 MG TAB PO ×2 (09:14→22:14)
[2018-08-28] MEDS: ASPIRIN 81 MG TAB PO (09:14)
[2018-08-28] MEDS: FOLIC ACID 1 MG TAB PO (09:14)
[2018-08-28] MEDS: ETHAMBUTOL 400 MG TAB PO ×2 (09:14→12:25)
[2018-08-28] MEDS: predniSONE 2.5 MG TAB PO (09:14)
[2018-08-28] MEDS: ENOXAPARIN 40 MG/0.4 ML SYG SC (09:27)
[2018-08-28 12:13] LABS: ADD MAN DIFF? NO
[2018-08-28 12:27] LABS: BASOPHIL # 0.1 10^3/ul (0.0-0.1); BASOPHILS % 0.4 % (0.0-2.0); EOSINOPHILS # 0.7 10^3/ul (0.0-0.5); HEMATOCRIT 35.4 % (42.0-52.0); HEMOGLOBIN 11.2 g/dl (14.0-18.0); LYMPHOCYTES # 0.7 10^3/ul (0.8-2.9); MEAN CORPUSCULAR HEMOGLOBIN 27.1 pg (29.0-33.0); MEAN CORPUSCULAR HGB CONC 31.6 g/dl (32.0-37.0); MEAN CORPUSCULAR VOLUME 85.7 fl (82.0-101.0); MEAN PLATELET VOLUME 8.7 fl (7.4-10.4); MONOCYTES % 6.2 % (0.0-11.0); NEUTROPHIL # 14.1 10^3/ul (1.6-7.5); NEUTROPHILS % 83.1 % (39.0-77.0); PLATELET COUNT 541 10^3/UL (140-415); RED BLOOD COUNT 4.13 10^6/ul (4.70-6.10); RED CELL DISTRIBUTION WIDTH 16.4 % (11.5-14.5)
[2018-08-28 12:27] LABS: WHITE BLOOD COUNT 16.9 10^3/ul (4.8-10.8)
[2018-08-28 12:39] LABS: ALANINE AMINOTRANSFERASE 25 IU/L (13-69); ALBUMIN 3.2 g/dl (3.3-4.9); ALBUMIN/GLOBULIN RATIO 0.94; ALKALINE PHOSPHATASE 102 IU/L (42-121); ANION GAP 16 (5-13); ASPARTATE AMINO TRANSFERASE 39 IU/L (15-46); BILIRUBIN,INDIRECT 0.4 mg/dl (0-1.1); BILIRUBIN,TOTAL 0.4 mg/dl (0.2-1.3); BLOOD UREA NITROGEN 13 mg/dl (7-20); CALCIUM 8.9 mg/dl (8.4-10.2); CARBON DIOXIDE 24 mmol/L (21-31); CHLORIDE 92 mmol/L (97-110); CREATININE 1.25 mg/dl (0.61-1.24); Estimated GFR 59 mL/min (>60); GLUCOSE 172 mg/dl (70-220); POTASSIUM 5.1 mmol/L (3.5-5.1); SODIUM 132 mmol/L (135-144); TOTAL PROTEIN 6.6 g/dl (6.1-8.1)
[2018-08-28] MEDS: AMIKACIN 1,000 MG in SOD CHLORIDE 0.9% 250 ML IVPB (16:05)
[2018-08-29] MEDS: PANTOPRAZOLE (EC) 40 MG TAB PO (05:39)
[2018-08-29 06:11] LABS: ADD MAN DIFF? NO
[2018-08-29 06:18] LABS: WHITE BLOOD COUNT 11.1 10^3/ul (4.8-10.8)
[2018-08-29 06:18] LABS: BASOPHIL # 0.1 10^3/ul (0.0-0.1); BASOPHILS % 0.9 % (0.0-2.0); EOSINOPHILS % 8.7 % (0.0-7.0); HEMATOCRIT 37.7 % (42.0-52.0); HEMOGLOBIN 11.6 g/dl (14.0-18.0); LYMPHOCYTES # 1.2 10^3/ul (0.8-2.9); LYMPHOCYTES % 10.5 % (15.0-51.0); MEAN CORPUSCULAR HEMOGLOBIN 26.5 pg (29.0-33.0); MEAN CORPUSCULAR HGB CONC 30.8 g/dl (32.0-37.0); MEAN CORPUSCULAR VOLUME 86.3 fl (82.0-101.0); MEAN PLATELET VOLUME 8.5 fl (7.4-10.4); MONOCYTES % 8.7 % (0.0-11.0); NEUTROPHIL # 7.5 10^3/ul (1.6-7.5); NEUTROPHILS % 67.6 % (39.0-77.0); PLATELET COUNT 549 10^3/UL (140-415); RED BLOOD COUNT 4.37 10^6/ul (4.70-6.10); RED CELL DISTRIBUTION WIDTH 16.1 % (11.5-14.5)
[2018-08-29 07:28] LABS: ANION GAP 10 (5-13); BLOOD UREA NITROGEN 13 mg/dl (7-20); CALCIUM 9.4 mg/dl (8.4-10.2); CARBON DIOXIDE 31 mmol/L (21-31); CHLORIDE 95 mmol/L (97-110); CREATININE 1.17 mg/dl (0.61-1.24); Estimated GFR > 60 mL/min (>60); GLUCOSE 94 mg/dl (70-220); SODIUM 136 mmol/L (135-144)
[2018-08-29] MEDS: INSULIN ASPART [NOVOLOG] 3 ML PEN SC ×4 (07:55→20:32)
[2018-08-29] MEDS: FOLIC ACID 1 MG TAB PO (08:51)
[2018-08-29] MEDS: ASPIRIN 81 MG TAB PO (08:51)
[2018-08-29] MEDS: predniSONE 2.5 MG TAB PO (08:51)
[2018-08-29] MEDS: ENOXAPARIN 40 MG/0.4 ML SYG SC (10:28)
[2018-08-30] MEDS: AMIKACIN 1,000 MG in SOD CHLORIDE 0.9% 250 ML IVPB (04:40)
[2018-08-30] MEDS: PANTOPRAZOLE (EC) 40 MG TAB PO (05:41)
[2018-08-30] MEDS: INSULIN ASPART [NOVOLOG] 3 ML PEN SC ×4 (07:55→21:00)
[2018-08-30] MEDS: FOLIC ACID 1 MG TAB PO (10:04)
[2018-08-30] MEDS: ASPIRIN 81 MG TAB PO (10:04)
[2018-08-30] MEDS: predniSONE 2.5 MG TAB PO (10:04)
[2018-08-30] MEDS: ENOXAPARIN 40 MG/0.4 ML SYG SC (10:10)
[2018-08-30] MEDS: ACETAMINOPHEN 325 MG TAB PO (11:17)
[2018-08-30 12:30] LABS: ADD MAN DIFF? NO
[2018-08-30 12:36] LABS: BASOPHIL # 0.1 10^3/ul (0.0-0.1); BASOPHILS % 0.6 % (0.0-2.0); EOSINOPHILS % 6.7 % (0.0-7.0); HEMATOCRIT 35.3 % (42.0-52.0); LYMPHOCYTES # 0.6 10^3/ul (0.8-2.9); LYMPHOCYTES % 4.4 % (15.0-51.0); MEAN CORPUSCULAR HEMOGLOBIN 26.3 pg (29.0-33.0); MEAN CORPUSCULAR HGB CONC 31.2 g/dl (32.0-37.0); MEAN CORPUSCULAR VOLUME 84.4 fl (82.0-101.0); MEAN PLATELET VOLUME 8.9 fl (7.4-10.4); MONOCYTES % 7.4 % (0.0-11.0); NEUTROPHIL # 11.1 10^3/ul (1.6-7.5); NEUTROPHILS % 78.3 % (39.0-77.0); PLATELET COUNT 498 10^3/UL (140-415); RED BLOOD COUNT 4.18 10^6/ul (4.70-6.10); RED CELL DISTRIBUTION WIDTH 16.2 % (11.5-14.5)
[2018-08-30 12:36] LABS: WHITE BLOOD COUNT 14.1 10^3/ul (4.8-10.8)
[2018-08-30 12:55] LABS: ANION GAP 11 (5-13); BLOOD UREA NITROGEN 12 mg/dl (7-20); CALCIUM 8.8 mg/dl (8.4-10.2); CARBON DIOXIDE 25 mmol/L (21-31); CHLORIDE 93 mmol/L (97-110); CREATININE 1.14 mg/dl (0.61-1.24); Estimated GFR > 60 mL/min (>60); GLUCOSE 181 mg/dl (70-220); POTASSIUM 4.2 mmol/L (3.5-5.1); SODIUM 129 mmol/L (135-144)
[2018-08-31] MEDS: PANTOPRAZOLE (EC) 40 MG TAB PO (06:06)
[2018-08-31 06:34] LABS: LACTIC ACID 1.1 mmol/L (0.5-2.0)
[2018-08-31 06:47] LABS: CREATININE 1.14 mg/dl (0.61-1.24)
[2018-08-31 06:47] LABS: BLOOD UREA NITROGEN 12 mg/dl (7-20)
[2018-08-31 07:33] LABS: PROCALCITONIN 0.35 ng/mL (0.00-0.10)
[2018-08-31] MEDS: INSULIN ASPART [NOVOLOG] 3 ML PEN SC ×4 (07:52→20:47)
[2018-08-31] MEDS: FOLIC ACID 1 MG TAB PO (08:15)
[2018-08-31] MEDS: CLARITHROMYCIN 500 MG TAB PO ×2 (08:15→20:48)
[2018-08-31] MEDS: predniSONE 2.5 MG TAB PO (08:15)
[2018-08-31] MEDS: ASPIRIN 81 MG TAB PO (08:15)
[2018-08-31] MEDS: ETHAMBUTOL 400 MG TAB PO ×2 (08:15→12:49)
[2018-08-31] MEDS: ENOXAPARIN 40 MG/0.4 ML SYG SC (08:20)
[2018-08-31] MEDS: AMIKACIN 1,000 MG in SOD CHLORIDE 0.9% 250 ML IVPB (16:56)
[2018-08-31 19:42] LABS: AMIKACIN TROUGH <2.5 mg/L (4.0-8.0)
[2018-09-01] MEDS: PANTOPRAZOLE (EC) 40 MG TAB PO (05:32)
[2018-09-01] MEDS: INSULIN ASPART [NOVOLOG] 3 ML PEN SC ×4 (07:53→20:59)
[2018-09-01] MEDS: FOLIC ACID 1 MG TAB PO (08:17)
[2018-09-01] MEDS: ACETAMINOPHEN 325 MG TAB PO (08:18)
[2018-09-01] MEDS: ASPIRIN 81 MG TAB PO (08:18)
[2018-09-01] MEDS: predniSONE 2.5 MG TAB PO (08:55)
[2018-09-01] MEDS: ENOXAPARIN 40 MG/0.4 ML SYG SC (08:56)
[2018-09-01] MEDS: AMIKACIN 500 MG INH (21:00)
[2018-09-02] MEDS: PANTOPRAZOLE (EC) 40 MG TAB PO (05:28)
[2018-09-02] MEDS: AMIKACIN 500 MG INH (07:52)
[2018-09-02] MEDS: INSULIN ASPART [NOVOLOG] 3 ML PEN SC ×4 (07:55→21:00)
[2018-09-02] MEDS: FOLIC ACID 1 MG TAB PO (08:43)
[2018-09-02] MEDS: predniSONE 2.5 MG TAB PO (08:44)
[2018-09-02] MEDS: ASPIRIN 81 MG TAB PO (08:44)
[2018-09-02] MEDS: ENOXAPARIN 40 MG/0.4 ML SYG SC (08:48)
[2018-09-02] MEDS: ETHAMBUTOL 400 MG TAB PO ×2 (08:52→12:05)
[2018-09-02] MEDS: CLARITHROMYCIN 500 MG TAB PO ×2 (08:52→21:07)
[2018-09-02] MEDS ORDERED: AMIKACIN IV PER PHARMACY XX (11:00)
[2018-09-02 12:48] LABS: BLOOD UREA NITROGEN 12 mg/dl (7-20)
[2018-09-02] MEDS: AMIKACIN 1,000 MG in SOD CHLORIDE 0.9% 250 ML IVPB (14:24)
[2018-09-03] MEDS: PANTOPRAZOLE (EC) 40 MG TAB PO (06:22)
[2018-09-03 06:50] LABS: ADD MAN DIFF? NO
[2018-09-03 06:57] LABS: WHITE BLOOD COUNT 9.4 10^3/ul (4.8-10.8)
[2018-09-03 06:58] LABS: BASOPHIL # 0.1 10^3/ul (0.0-0.1); EOSINOPHILS # 1.2 10^3/ul (0.0-0.5); EOSINOPHILS % 13.1 % (0.0-7.0); HEMATOCRIT 34.7 % (42.0-52.0); HEMOGLOBIN 10.9 g/dl (14.0-18.0); LYMPHOCYTES # 1.3 10^3/ul (0.8-2.9); LYMPHOCYTES % 13.5 % (15.0-51.0); MEAN CORPUSCULAR HEMOGLOBIN 26.6 pg (29.0-33.0); MEAN CORPUSCULAR HGB CONC 31.4 g/dl (32.0-37.0); MEAN CORPUSCULAR VOLUME 84.6 fl (82.0-101.0); MEAN PLATELET VOLUME 8.7 fl (7.4-10.4); MONOCYTE # 0.9 10^3/ul (0.3-0.9); MONOCYTES % 9.7 % (0.0-11.0); NEUTROPHIL # 5.7 10^3/ul (1.6-7.5); NEUTROPHILS % 60.2 % (39.0-77.0); PLATELET COUNT 363 10^3/UL (140-415)
[2018-09-03 07:12] LABS: HEMOGLOBIN A1C 7.7 % (0-5.9)
[2018-09-03] MEDS: INSULIN ASPART [NOVOLOG] 3 ML PEN SC ×4 (07:55→21:00)
[2018-09-03 07:58] LABS: ALANINE AMINOTRANSFERASE 16 IU/L (13-69); ALBUMIN 3.2 g/dl (3.3-4.9); ALBUMIN/GLOBULIN RATIO 0.84; ALKALINE PHOSPHATASE 84 IU/L (42-121); ANION GAP 8 (5-13); ASPARTATE AMINO TRANSFERASE 24 IU/L (15-46); BILIRUBIN,INDIRECT 0.3 mg/dl (0-1.1); BILIRUBIN,TOTAL 0.3 mg/dl (0.2-1.3); BLOOD UREA NITROGEN 12 mg/dl (7-20); CALCIUM 9.2 mg/dl (8.4-10.2); CARBON DIOXIDE 31 mmol/L (21-31); CHLORIDE 101 mmol/L (97-110); CREATININE 1.28 mg/dl (0.61-1.24); Estimated GFR 58 mL/min (>60); GLUCOSE 98 mg/dl (70-220); POTASSIUM 4.5 mmol/L (3.5-5.1); SODIUM 140 mmol/L (135-144)
[2018-09-03 08:08] LABS: PHOSPHORUS 4.9 mg/dl (2.5-4.9)
[2018-09-03] MEDS: FOLIC ACID 1 MG TAB PO (08:25)
[2018-09-03] MEDS: predniSONE 2.5 MG TAB PO (08:25)
[2018-09-03] MEDS: ASPIRIN 81 MG TAB PO (08:25)
[2018-09-03] MEDS: ENOXAPARIN 40 MG/0.4 ML SYG SC (08:30)
[2018-09-03] MEDS: metFORMIN 500 MG TAB PO (17:43)
[2018-09-04] MEDS: AMIKACIN 1,000 MG in SOD CHLORIDE 0.9% 250 ML IVPB (01:22)
[2018-09-04] MEDS: PANTOPRAZOLE (EC) 40 MG TAB PO (06:13)
[2018-09-04 07:39] LABS: ANION GAP 10 (5-13); BLOOD UREA NITROGEN 11 mg/dl (7-20); CALCIUM 9.2 mg/dl (8.4-10.2); CARBON DIOXIDE 30 mmol/L (21-31); CHLORIDE 99 mmol/L (97-110); CREATININE 1.17 mg/dl (0.61-1.24); Estimated GFR > 60 mL/min (>60); GLUCOSE 96 mg/dl (70-220); POTASSIUM 3.6 mmol/L (3.5-5.1); SODIUM 139 mmol/L (135-144)
[2018-09-04] MEDS: INSULIN ASPART [NOVOLOG] 3 ML PEN SC ×3 (07:55→17:16)
[2018-09-04] MEDS: FOLIC ACID 1 MG TAB PO (09:10)
[2018-09-04] MEDS: metFORMIN 500 MG TAB PO ×2 (09:11→17:18)
[2018-09-04] MEDS: predniSONE 2.5 MG TAB PO (09:11)
[2018-09-04] MEDS: ASPIRIN 81 MG TAB PO (09:11)
[2018-09-04] MEDS: ENOXAPARIN 40 MG/0.4 ML SYG SC (09:14)
[2018-09-04] MEDS: ETHAMBUTOL 400 MG TAB PO ×2 (09:19→12:19)
[2018-09-04] MEDS: CLARITHROMYCIN 500 MG TAB PO (09:19)
== END 2018-09-04 17:15 | disposition home health service (06) | DRG 163 ==
LOC: TEL 08-24 09:51 → E/R 18:15 → ICU 08-22 12:46 → TEL 23:44
PROC: 0BNK4ZZ Release Right Lung, Percutaneous Endoscopic Approach (ICD-10-PCS; principal; 2018-08-22 10:30)
PROC: 0W9940Z Drainage of Right Pleural Cavity with Drainage Device, Percutaneous Endoscopic Approach (ICD-10-PCS; 2018-08-22 10:30)
PROC: 0BJ08ZZ Inspection of Tracheobronchial Tree, Via Natural or Artificial Opening Endoscopic (ICD-10-PCS; 2018-08-22 10:30)
PROC: 0W9930Z Drainage of Right Pleural Cavity with Drainage Device, Percutaneous Approach (ICD-10-PCS; 2018-08-22 12:29)
PROC: 0W9930Z Drainage of Right Pleural Cavity with Drainage Device, Percutaneous Approach (ICD-10-PCS; 2018-08-22 12:29)
PROC: 30233N1 Transfusion of Nonautologous Red Blood Cells into Peripheral Vein, Percutaneous Approach (ICD-10-PCS; 2018-08-22 12:29)
DX: J93.11 Primary spontaneous pneumothorax (principal); A41.9 Sepsis, unspecified organism; J15.8 Pneumonia due to other specified bacteria; J18.1 Lobar pneumonia, unspecified organism; J86.9 Pyothorax without fistula; A31.0 Pulmonary mycobacterial infection; N17.9 Acute kidney failure, unspecified; I82.611 Acute embolism and thrombosis of superficial veins of right upper extremity; D89.9 Disorder involving the immune mechanism, unspecified; D64.9 Anemia, unspecified; E11.65 Type 2 diabetes mellitus with hyperglycemia; I10 Essential (primary) hypertension; J44.9 Chronic obstructive pulmonary disease, unspecified; M06.9 Rheumatoid arthritis, unspecified; L27.1 Localized skin eruption due to drugs and medicaments taken internally; T36.6X5A Adverse effect of rifampicins, initial encounter; Z87.891 Personal history of nicotine dependence
CPT/HCPCS: 36415; 36430; 36600; 71045; 71250; 71275; 75989; 80048; 80053; 80150; 80202; 81001; 82565; 82803; 82962; 83036; 83605; 83735; 83880; 84100; 84145; 84484; 84520; 85025; 85610; 85730; 86480; 86635; 86641; 86644; 86703; 86850; 86900; 86901; 86920; 87040-91; 87070; 87075; 87081; 87086; 87102; 87116; 87400; 88307; 93005; 93306; 93971; 94640; 94664; 94770; 96374; 96375; 99285-25

== ENCOUNTER 2018-09-08 10:35 | Emergency (ER) | payer OTHER ==
[2018-09-08] MEDS: SODIUM CHLORIDE 0.9% 1L BAG IV* (11:12)
[2018-09-08 11:14] LABS: ADD MAN DIFF? NO
[2018-09-08] MEDS: ACETAMINOPHEN 500 MG TAB PO (11:15)
[2018-09-08 11:16] LABS: BASOPHIL # 0.1 10^3/ul (0.0-0.1); BASOPHILS % 0.6 % (0.0-2.0); EOSINOPHILS # 1.1 10^3/ul (0.0-0.5); EOSINOPHILS % 9.5 % (0.0-7.0); HEMATOCRIT 33.9 % (42.0-52.0); HEMOGLOBIN 10.7 g/dl (14.0-18.0); LYMPHOCYTES # 1.2 10^3/ul (0.8-2.9); LYMPHOCYTES % 10.3 % (15.0-51.0); MEAN CORPUSCULAR HEMOGLOBIN 26.6 pg (29.0-33.0); MEAN CORPUSCULAR HGB CONC 31.6 g/dl (32.0-37.0); MEAN CORPUSCULAR VOLUME 84.1 fl (82.0-101.0); MEAN PLATELET VOLUME 8.1 fl (7.4-10.4); MONOCYTES % 8.8 % (0.0-11.0); NEUTROPHIL # 8.1 10^3/ul (1.6-7.5); NEUTROPHILS % 69.5 % (39.0-77.0); PLATELET COUNT 318 10^3/UL (140-415); RED BLOOD COUNT 4.03 10^6/ul (4.70-6.10); RED CELL DISTRIBUTION WIDTH 15.8 % (11.5-14.5)
[2018-09-08 11:16] LABS: WHITE BLOOD COUNT 11.7 10^3/ul (4.8-10.8)
[2018-09-08] MEDS: CEFEPIME 2GM/50 ML (PMX) 50 ML IVPB (11:25)
[2018-09-08 11:32] LABS: ALANINE AMINOTRANSFERASE 14 IU/L (13-69); ALBUMIN 3.5 g/dl (3.3-4.9); ALBUMIN/GLOBULIN RATIO 0.85; ALKALINE PHOSPHATASE 83 IU/L (42-121); ANION GAP 11 (5-13); ASPARTATE AMINO TRANSFERASE 23 IU/L (15-46); BILIRUBIN,INDIRECT 0.4 mg/dl (0-1.1); BILIRUBIN,TOTAL 0.4 mg/dl (0.2-1.3); BLOOD UREA NITROGEN 9 mg/dl (7-20); CALCIUM 9.4 mg/dl (8.4-10.2); CARBON DIOXIDE 28 mmol/L (21-31); CHLORIDE 96 mmol/L (97-110); CREATININE 1.31 mg/dl (0.61-1.24); Estimated GFR 56 mL/min (>60); GLUCOSE 133 mg/dl (70-220); SODIUM 135 mmol/L (135-144); TOTAL PROTEIN 7.6 g/dl (6.1-8.1)
[2018-09-08 11:41] LABS: INR 1.06; PROTIME 13.9 Sec (11.9-14.9); PT RATIO 1.1
[2018-09-08 11:42] LABS: PARTIAL THROMBOPLASTIN TIME 35.1 Sec (23.0-35.0)
[2018-09-08 11:43] LABS: TROPONIN-I < 0.012 ng/ml (0.000-0.120)
[2018-09-08] MEDS: IOHEXOL 300MG/ML 150 ML BTL (11:53)
[2018-09-08] MEDS: SOD CHLORIDE 0.9% 100 ML (12:16)
[2018-09-08] MEDS: IODIXANOL LOCM 100 ML BTL (12:16)
[2018-09-08] MEDS: VANCOMYCIN 1 GM (PMX) 250 ML IVPB (12:31)
[2018-09-08] MEDS: AMIKACIN 500 MG INH (12:50)
== END 2018-09-08 14:05 | disposition left against medical advice (07) ==
LOC: E/R 10:35
DX: J86.9 Pyothorax without fistula (principal); N28.9 Disorder of kidney and ureter, unspecified; Z79.82 Long term (current) use of aspirin; Z79.84 Long term (current) use of oral hypoglycemic drugs
CPT/HCPCS: 36415; 71045; 71260; 80053; 83605; 84484; 85025; 85610; 85730; 87040-91; 93005; 96374; 96375; 99285-25